=== PATIENT | male | born 1955 | race Caucasian/White ===

== ENCOUNTER 2020-12-18 16:05 | Emergency (ER) | payer MEDICARE, OTHER ==
--- NOTE | 2020-12-18 16:14 | EDM.PDOC ---
ED HPI GENERAL MEDICAL PROBLEM - General Chief Complaint: Respiratory Problem Stated Complaint: SENT PT FOR DECREASED WHITE BLOOD CELL Time Seen by Provider: 12/18/20 16:07 Source of Information: Reports: Patient History Limitations: Reports: No Limitations - History of Present Illness INITIAL COMMENTS - FREE TEXT/NARRATIVE: HISTORY AND PHYSICAL: History of present illness: Patient is a 65-year-old male who presents to the emergency room after receiving a phone call from the clinic stating he was positive for COVID-19 and he had a low WBC count. Patient states he got tested for COVID-19 because his whole family has been recently ill. He states he has had the [employer] COVID-19 vaccination. He states he feels "fine" and he states if he would not have been told to come to the emergency room he would not be here. Patient denies any fever, chills, headache, change in vision, syncope or near syncope. Denies any chest pain, back pain, shortness of breath. Denies any abdominal pain, nausea, vomiting, diarrhea, constipation or dysuria. Has not noted any blood in urine or stool. Patient has been eating and drinking appropriately. Review of systems: As per history of present illness and below otherwise all systems reviewed and negative. Past medical history: As per history of present illness and as reviewed below otherwise noncontributory. Surgical history: As per history of present illness and as reviewed below otherwise noncontributory. Social history: See social history for further information Family history: As per history of present illness and as reviewed below otherwise noncontributory. Physical exam: General: Well developed and well nourished 65-year-old male. Alert and orientated x 3. Nontoxic in appearance and in no acute distress. Vital signs are stable and have been reviewed by me. Nursing notes were reviewed. HEENT: Atraumatic, normocephalic, pupils equal and reactive bilaterally, negative for conjunctival pallor or scleral icterus, mucous membranes moist, TMs normal bilaterally, throat clear, neck supple, nontender, trachea midline. No drooling or trismus noted. No meningeal signs. No hot potato voice noted. Lungs: Clear to auscultation bilaterally. No wheezes, rales, or rhonchi. Chest nontender. Normal work of breathing, no accessory muscles used. Heart: S1S2, regular rate and rhythm without overt murmur, gallops, or rubs. No JVD. No peripheral edema Abdomen: Soft, nondistended, nontender. Normoactive bowel sounds. Negative for masses or costovertebral tenderness. Skin: Intact, warm, dry. No lesions or rashes noted. Hematologic: No petechiae or purpra. Mucosa appropriate color and normal nail bed color and refill. Extremities: Atraumatic, moves all extremities per self without difficulty or deficits, negative for cords or calf pain. Neurovascular unremarkable. Neuro: Awake, alert, oriented. Cranial nerves II through XII unremarkable. Cerebellum unremarkable. Motor and sensory unremarkable throughout. Exam nonfocal. Psychiatric: Mood and affect are appropriate. Normal thought process. Answering questions appropriately. Please note that the patient was seen and evaluated during the 2019 SARS-CoV-2 novel coronavirus pandemic period. Community viral transmission is ongoing at time of this encounter and the emergency department is operating under pandemic response procedures. Medical Decision Making: Patient's heart rate is in the 40s, patient states this is normal for him he ranges anywhere from high 30s to low 50s. Patient states he feels well and offers no current complaints or concerns. States he was informed he had COVID- 19 and that his WBC is low. Patient did have a chest x-ray which was clear. He is agreeable to repeating his CBC and CMP at this time. Patient does have low neutrophils and platelets. He believes this has been low in the past which he states is due to his treated hepatitis C. He states he has not had any fevers in the past 48 hours. He feels well, asymptomatic and has no current complaints or concerns. Reviewed this case with Dr Alvarado about this patient. I will order outpatient Regeneron due to him being high risk. He needs a COVID test done here (on file) to receive this treatment. We did discuss doing outpatient antibiotics, he declines at this time. I have talked with the patient about today's findings, in addition to providing specific details for plan of care. Reassessment at the time of disposition demonstrates that the patient is in no acute distress. The patient is stable for discharge, counseling was provided and we discussed in great detail signs and symptoms (fevers, diaphoretic, cough, chest pain, etc...) that would prompt them to return to the Emergency Department immediately. Medication, follow up with Ankit and supportive care measures were reviewed and discussed. Voices understanding and is agreeable to plan of care. Denies any further questions or concerns at this time. Diagnostics: CBC, CMP, COVID Therapeutics: None Prescription: None Impression: COVID-19 Plan: 1. You were evaluated today on an emergent basis. Your WBC is low with low platelets; if you develop a FEVER you need to return to the ED immediately. I have prescribed for you to receive the Regeneron antibody infusion as out patient. They should call you to set this us. 2. You can alternate Tylenol and ibuprofen as needed for pain and fever management. 3. We encourage you to follow up with your primary care provider in the next few days for re-evaluation and further care/management. 4. If your symptoms should worsen, new symptoms develop or any of the signs and symptoms we discussed should arise please return to the emergency room or call 911 (if needed). Definitive disposition and diagnosis as appropriate pending reevaluation and review of above. - Related Data Allergies Allergy/AdvReac Type Severity Reaction Status Date / Time No Known Allergies Allergy Verified 12/18/20 16:16 Home Meds: Home Meds Metoprolol Succinate 150 mg PO DAILY 12/18/20 [History] Sildenafil [Revatio] 20 - 100 mg PO DAILY PRN 12/18/20 [History] ED ROS GENERAL - Review of Systems Review Of Systems: Comprehensive ROS is negative, except as noted in HPI. ED EXAM, GENERAL - Physical Exam Exam: See Below (See dictation) Course - Vital Signs Last Recorded V/S: Last Vital Signs Temp 97.9 F 12/18/20 17:40 Pulse 44 L 12/18/20 17:40 Resp 18 12/18/20 17:40 BP 185/77 H 12/18/20 17:40 Pulse Ox 99 12/18/20 17:40 - Orders/Labs/Meds Labs: Laboratory Tests 12/18/20 12/18/20 12/18/20 Range/Units 16:31 16:31 17:42 WBC 2.04 L (4.0-11.0) K/uL RBC 4.33 L (4.50-5.90) M/uL Hgb 14.9 (13.0-17.0) g/dL Hct 40.6 (38.0-50.0) % MCV 93.8 (80.0-98.0) fL MCH 34.4 H (27.0-32.0) pg MCHC 36.7 (31.0-37.0) g/dL RDW Std Deviation 45.8 (28.0-62.0) fl RDW Coeff of Cosmo 13 (11.0-15.0) % Plt Count 78 L (150-400) K/uL MPV 10.20 (7.40-12.00) fL Neut % (Auto) 48.0 (48.0-80.0) % Lymph % (Auto) 36.8 (16.0-40.0) % Kaufman % (Auto) 10.8 (0.0-15.0) % Eos % (Auto) 3.4 (0.0-7.0) % Baso % (Auto) 1.0 (0.0-1.5) % Neut # (Auto) 1.0 L (1.4-5.7) K/uL Lymph # (Auto) 0.8 (0.6-2.4) K/uL Kaufman # (Auto) 0.2 (0.0-0.8) K/uL Eos # (Auto) 0.1 (0.0-0.7) K/uL Baso # (Auto) 0.0 (0.0-0.1) K/uL Nucleated RBC % 0.0 /100WBC Nucleated RBCs # 0 K/uL Sodium 142 (136-148) mmol/L Potassium 3.7 (3.5-5.1) mmol/L Chloride 105 (98-107) mmol/L Carbon Dioxide 28.0 (21.0-32.0) mmol/L BUN 12 (7.0-18.0) mg/dL Creatinine 0.8 (0.8-1.3) mg/dL Est Cr Clr Drug Dosing 89.60 mL/min Estimated GFR (MDRD) > 60.0 ml/min Glucose 126 H (74-106) mg/dL Calcium 8.8 (8.5-10.1) mg/dL SARS-CoV-2 RNA ([facility]) POSITIVE H (NEGATIVE) Departure - Departure Time of Disposition: 17:15 Disposition: Home, Self-Care 01 Clinical Impression: COVID-19, Neutrophilia - Discharge Information Instructions: COVID-19 Referrals: Earnestine Pham DO [Primary Care Provider] - Forms: ED Department Discharge Additional Instructions: The following information is given to patients seen in the emergency department who are being discharged to home. This information is to outline your options for follow-up care. We provide all patients seen in our emergency department with a follow-up referral. The need for follow-up, as well as the timing and circumstances, are variable depending upon the specifics of your emergency department visit. If you don't have a primary care physician on staff, we will provide you with a referral. We always advise you to contact your personal physician following an emergency department visit to inform them of the circumstance of the visit and for follow-up with them and/or the need for any referrals to a consulting specialist. The emergency department will also refer you to a specialist when appropriate. This referral assures that you have the opportunity for follow-up care with a specialist. All of these measure are taken in an effort to provide you with optimal care, which includes your follow-up. Under all circumstances we always encourage you to contact your private physician who remains a resource for coordinating your care. When calling for follow-up care, please make the office aware that this follow-up is from your recent emergency room visit. If for any reason you are refused follow-up, please contact the [facility] Emergency Department at and asked to speak to the emergency department charge nurse. [facility] [address] [place] [id number] [address] Thank you for choosing the [facility] emergency department in [place] for your medical needs today. It was a pleasure caring for you. Today you were seen in the emergency department for low WBC/low platelets 1. You were evaluated today on an emergent basis. Your WBC is low with low platelets; if you develop a FEVER you need to return to the ED immediately. I have prescribed for you to receive the Regeneron antibody infusion as out patient. They should call you to set this us. 2. You can alternate Tylenol and ibuprofen as needed for pain and fever management. 3. We encourage you to follow up with your primary care provider in the next few days for re-evaluation and further care/management. 4. If your symptoms should worsen, new symptoms develop or any of the signs and symptoms we discussed should arise please return to the emergency room or call 911 (if needed). Sepsis Event Note (ED) - Focused Exam Vital Signs: Vital Signs Temp Pulse Resp BP Pulse Ox 12/18/20 17:40 97.9 F 44 L 18 185/77 H 99 12/18/20 16:17 98.6 F 53 L 16 152/68 H 96 12/18/20 16:15 98.6 F 44 L 16 185/72 H 95
[2020-12-18 16:54] LABS: BLOOD UREA NITROGEN,BUN 12 mg/dL (7.0-18.0); CHLORIDE,CL 105 mmol/L (98-107); GLUCOSE RANDOM 126 mg/dL (74-106); POTASSIUM,K 3.7 mmol/L (3.5-5.1); SODIUM,NA 142 mmol/L (136-148)
--- NOTE | 2020-12-18 17:37 | PCM.EKG ---
#1 Interpretation EKG Date: 12/18/20 Time: 16:46 Rhythm: Other (sinus triston) Rate (Beats/Min): 43 ST-T: Normal
== END 2020-12-18 17:40 | disposition home or self-care (01) ==
LOC: MW.ED 16:05
DX: U07.1 COVID-19 (principal); Z79.899 Other long term (current) drug therapy
CPT/HCPCS: 36415; 80048; 85025; 93005; 99283; U0002